=== PATIENT | male | born 1960 | race Two or more races ===

== ENCOUNTER 2025-01-27 14:04 | Emergency (ER) | payer MEDICARE ==
[2025-01-27 14:41] LABS: BLOOD UREA NITROGEN,BUN 22 mg/dL (7-18); CARBON DIOXIDE,CO2 24 mmol/L (21-32); CHLORIDE,CL 96 mmol/L (100-110); CREATININE 1.7 mg/dL (0.70-1.30); ESTIMATED GFR 44 mL/min (>60); GLUCOSE RANDOM 288 mg/dL (80-116); POTASSIUM,K 4.8 mmol/L (3.5-5.3); SODIUM,NA 130 mmol/L (135-145)
[2025-01-27 14:42] LABS: BASOPHILS ABSOLUTE AUTO 0.1 x10-3/uL (0.0-0.3); BASOPHILS PERCENT AUTO 0.7 % (0.3-3.8); EOSINOPHILS ABSOLUTE AUTO 0.3 x10-3/uL (0.0-0.6); EOSINOPHILS PERCENT AUTO 3.3 % (0.1-6.8); LYMPHOCYTES ABSOLUTE AUTO 1.7 x10-3/uL (0.5-4.5); LYMPHOCYTES PERCENT AUTO 17.5 % (15.8-45.3); MEAN PLATELET VOLUME 10.7 fL (6.7-11.0); MONOCYTES ABSOLUTE AUTO 0.8 x10-3/uL (0.0-1.2); MONOCYTES PERCENT AUTO 7.7 % (5.5-15.2); NEUTROPHILS ABSOLUTE AUTO 6.9 x10-3/uL (1.7-6.9); NEUTROPHILS PERCENT AUTO 70.8 % (40.3-71.8); PLATELET COUNT,PLT 232 x10(3)uL (117-477); RED BLOOD CELL COUNT 4.55 x10(6)uL (3.90-5.90); RED CELL DISTRIBUTION WIDTH 14.6 % (12.4-15.0); WHITE BLOOD CELL COUNT,WBC 9.8 x10-3/uL (3.2-10.1)
[2025-01-27 14:47] LABS: A/G RATIO 1.0; ALANINE AMINOTRANSFERASE,ALT 46 U/L (12-36); ASPARTATE AMNIOTRANSFERASE,AST 29 IU/L (5-25); BILIRUBIN TOTAL 0.5 mg/dL (0.1-1.3); PROTEIN TOTAL,TP 7.4 g/dL (6.0-8.0)
[2025-01-27 14:49] LABS: INR 0.96 (1.00-1.24)
[2025-01-27] MEDS: Sodium Chloride 0.9% 10 ML Syringe FLUSH PRN (15:10)
[2025-01-27 16:37] LABS: GLUCOSE,URINE 50 mg/dL (NORMAL); OCCULT BLOOD,URINE NEGATIVE (NEGATIVE)
[2025-01-27 16:39] LABS: APPEARANCE,URINE CLEAR (CLEAR)
[2025-01-27 18:52] VITALS: BP 124/70; PULSE 76
== END 2025-01-27 18:44 | disposition home or self-care (01) ==
LOC: FB.ED 14:04
DX: E86.0 Dehydration (principal); N17.9 Acute kidney failure, unspecified; E87.20 Acidosis, unspecified; E83.42 Hypomagnesemia; I10 Essential (primary) hypertension; E78.00 Pure hypercholesterolemia, unspecified; E11.9 Type 2 diabetes mellitus without complications; Z79.899 Other long term (current) drug therapy; Z79.4 Long term (current) use of insulin; Z86.73 Personal history of transient ischemic attack (TIA), and cerebral infarction without residual deficits
CPT/HCPCS: 36415; 80053; 81003; 82947; 83605; 83735; 84484; 85025; 85610; 86140; 93005; 96360; 99285; J7030